=== PATIENT | female | born 1955 | race Caucasian/White ===

== ENCOUNTER 2022-07-21 23:58 | Emergency (ER) | payer OTHER ==
[~2022-07-21] VITALS: Ht 160 cm; Wt 79.4 kg
[~2022-07-21 23:58] MED LIST: ACTOS30 MG PO; GLUMETZA1000 MG PO; LIPITOR20 MG PO; PNEU16DI2 PO; TOPROL XL25 M1 PO
[2022-07-22] MEDS ORDERED: LEVOTHYROXINE25 MCG PO (00:21)
[2022-07-22] MEDS ORDERED: JANUMET 50-1,01 EACH PO (00:21)
[2022-07-22] MEDS ORDERED: NORFLEX100MG PO (04:57)
== END 2022-07-22 05:34 ==
LOC: ER 23:58
DX: S29.8XXA Other specified injuries of thorax, initial encounter (principal); S89.92XA Unspecified injury of left lower leg, initial encounter; W18.30XA Fall on same level, unspecified, initial encounter; Y93.9 Activity, unspecified; Y92.009 Unspecified place in unspecified non-institutional (private) residence as the place of occurrence of the external cause; Z88.8 Allergy status to other drugs, medicaments and biological substances